=== PATIENT | male | born 1975 | race Caucasian/White ===

== ENCOUNTER 2020-11-03 11:53 | Emergency (ER) | payer SELFPAY ==
[~2020-11-03] VITALS: Ht 175.3 cm; Wt 104.5 kg
[2020-11-03] MEDS ORDERED: NORCO 325 MG-51 TAB PO (13:50)
[2020-11-03] MEDS ORDERED: PREDNISONE20 MG PO (13:50)
[2020-11-03 14:03] VITALS: BP 151/91; PULSE 68; TEMP 98.5
== END 2020-11-03 14:04 | disposition home or self-care (01) ==
LOC: COL.ER 11:53
DX: G56.03 Carpal tunnel syndrome, bilateral upper limbs (principal); Z88.1 Allergy status to other antibiotic agents; Z88.5 Allergy status to narcotic agent